=== PATIENT | male | born 2000 | race Caucasian/White ===

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

== ENCOUNTER 2020-07-08 13:46 | Emergency (ER) | payer OTHER ==
[~2020-07-08 13:46] MED LIST: AUGMENTIN 875-1 EACH PO; ERYTHROMYCIN O3.5 GM OD; PROTONIX40 MG PO; TESSALON PERLE100 MG PO; ZITHROMAX250 MG PO; ZOFRAN4 MG PO
[2020-07-08] MEDS ORDERED: IBUPROFEN600 MG PO (16:30)
[2020-07-08] MEDS ORDERED: NORFLEX 100 MG100 MG PO (16:30)
== END 2020-07-08 16:46 | disposition home or self-care (01) ==
LOC: ER1 13:46
DX: S16.1XXA Strain of muscle, fascia and tendon at neck level, initial encounter (principal); S30.0XXA Contusion of lower back and pelvis, initial encounter; R51.9 Headache, unspecified; W01.10XA Fall on same level from slipping, tripping and stumbling with subsequent striking against unspecified object, initial encounter
CPT/HCPCS: 72040; 72100; 96372; 99283; J1885

== ENCOUNTER 2020-11-13 15:27 | Emergency (ER) | payer OTHER ==
[~2020-11-13 15:27] MED LIST changes: +IBUPROFEN600 MG PO; +NORFLEX 100 MG100 MG PO
[2020-11-13 17:04] LABS: BUN/CREATININE RATIO 14 (0-10)
[2020-11-13 17:13] LABS: HEMOGLOBIN 15.3 gm/dl (14.0-17.5); RED BLOOD COUNT 5.33 M/UL (4.20-5.50); WHITE BLOOD COUNT 9.5 K/UL (4.5-11.0)
[2020-11-13] MEDS ORDERED: PERCOCET 5-3251 EACH PO (17:34)
[2020-11-13] MEDS ORDERED: ZOFRAN ODT 4 MG4 MG SL ×2 (17:35→18:57)
[2020-11-13] MEDS ORDERED: ENDOCET 5-3251 EACH PO (18:57)
== END 2020-11-13 19:02 | disposition home or self-care (01) ==
LOC: ER1 15:27
PROVIDERS: Emergency Medicine
DX: N13.2 Hydronephrosis with renal and ureteral calculous obstruction (principal)
CPT/HCPCS: 80048; 81001; 85025; 87086; 96374; 96375; 99284; J1170; J1885; J2405